=== PATIENT | female | born 1970 | race Caucasian/White ===

== ENCOUNTER 2019-07-08 16:50 | Emergency (ER) | payer OTHER ==
[2019-07-08 16:54] VITALS: BP 121/79; PULSE 67; RESP 16; TEMP 97.7
[2019-07-08] MEDS ORDERED: GELATIN SPONGE,ABSORB (SMALL) 1 EACH SPONGE TOPICAL STA (17:02)
--- NOTE | 2019-07-08 17:03 | ED ---
Wound/Laceration HPI - General Chief Complaint: Wound/Laceration Stated Complaint: finger lac Time Seen by Provider: 07/08/19 16:55 Source: patient Mode of arrival: ambulatory Limitations: no limitations - History of Present Illness Initial Comments: 48 yo female presenting for a left middle finger laceration. Patient states she cut her left middle finger with a sharp knife. Patient states this occurred right before she arrived to the emergency department. Patient states she was unable to control the bleeding and presents emergency department for evaluation. Remaining review of systems negative denies any areas of injury refuses any vaccinations stating she does not want updated tetanus - Related Data Allergies Allergy/AdvReac Type Severity Reaction Status Date / Time No Known Allergies Allergy Verified 07/08/19 16:54 Review of Systems ROS Statement: Those systems with pertinent positive or pertinent negative responses have been documented in the HPI. ROS Other: All systems not noted in ROS Statement are negative. 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 Eye: Pupils are equal, round and reactive to light, extra-ocular movements are intact. No nystagmus. There is normal conjunctiva bilaterally. No signs of icterus. Cardiovascular: There is a regular rate and rhythm. No murmur, rub or gallop is appreciated. Respiratory: Lungs are clear to auscultation, respirations are non-labored, breath sounds are equal. No wheezes, stridor, rales, or rhonchi. Musculoskeletal: Normal ROM, no tenderness. Strength 5/5. Sensation intact. Pulses equal bilaterally 2+. Neurological: A&O x 3. CN II-XII intact grossly, There are no obvious motor or sensory deficits. Coordination appears grossly intact. Speech is normal. Skin: Skin is warm and dry and no rashes [id number] skin avulsion of the tip of left middle finger involving nail (avulsed). superficial in nature no skin flap or deeper laceration. Psychiatric: Cooperative, appropriate mood & affect, normal judgment. Limitations: no limitations Course Vital Signs 07/08/19 16:51 Temperature 97.7 F Pulse Rate 67 Respiratory 16 Rate Blood Pressure 121/79 O2 Sat by Pulse 100 Oximetry Medical Decision Making - Medical Decision Making 48-year-old female presenting for possible laceration. Skin avulsion on examination. Bleeding mostly controlled. Bleeding completely controlled with Gelfoam. Bandage applied after cleansing the area extensively. Patient refused tetanus vaccination despite risks. Patient discharged appearing well, agreeable [facility] return parameters. Disposition Clinical Impression: Skin avulsion Disposition: HOME SELF-CARE Condition: Good Instructions (If sedation given, give patient instructions): Skin Avulsion (ED) Additional Instructions: Please use medication as discussed. Please follow-up with family doctor in the next 2 days. Please return to emergency room if the symptoms increase or worsen or for any other concerns. Is patient prescribed a controlled substance at d/c from ED?: No Referrals: None,Stated [Primary Care Provider] - 1-2 days Time of Disposition: 17:34
== END 2019-07-08 18:00 | disposition home or self-care (01) ==
LOC: EC 16:50
DX: S61.203A Unspecified open wound of left middle finger without damage to nail, initial encounter (principal); W26.0XXA Contact with knife, initial encounter
CPT/HCPCS: 99282